=== PATIENT | male | born 1950 | race Caucasian/White ===

== ENCOUNTER → 2016-11-17 | Outpatient (CLI) | payer MEDICARE ==
[~2016-11-17] MED LIST: ALLP300T PO; AMLO10TA82 PO; ASP325T PO; CODE-54 PO; LSNP10T PO; METO25TA2 PO; PRV20T PO; REGADENOSON 0.4 MG/5 ML SYR (LEXISCAN) IV ONE
[2016-11-17 09:04] VITALS: BP 151/71
[2016-11-17 09:15] VITALS: BP 135/76
[2016-11-17 09:17] VITALS: BP 158/76
== END ==
LOC: CARD 06:56
PROVIDERS: ATTEND Internal Medicine Interventional Cardiology
DX: Z01.810 Encounter for preprocedural cardiovascular examination (principal); R07.89 Other chest pain; E11.9 Type 2 diabetes mellitus without complications; I10 Essential (primary) hypertension; E78.5 Hyperlipidemia, unspecified
CPT/HCPCS: 78452; 93017; 93306

== ENCOUNTER → 2018-05-30 | Outpatient (CLI) | payer MEDICARE ==
[~2018-05-30] MED LIST changes: -REGADENOSON 0.4 MG/5 ML SYR (LEXISCAN) IV ONE
--- NOTE | 2018-05-30 12:59 | Diagnostic Imaging Report ---
CLINICAL INDICATION: Both sides of neck has swelling, possible lymph nodes. EXAM: Axial CT scan of the neck soft tissue performed without IV contrast. Sagittal and coronal reformatted images were created. COMPARISON: None. FINDINGS: There is soft tissue thickening involving the inferior right lateral oropharyngeal region which starts below the level of the right palatal arch to the level of the top of the epiglottis. There is no measurable mass seen. Remainder of the nasopharynx, oropharynx, hypopharynx, and laryngeal soft tissue structures are unremarkable. There is no evidence of lymphadenopathy. The bilateral salivary glands are unremarkable. There is a 7 mm cyst involving the right thyroid gland. Otherwise, the thyroid gland is unremarkable. There is no neck soft tissue fluid collection, fat stranding, soft tissue mass. The visualized portion of the oral cavity, sublingual space, submandibular region is unremarkable. Visualized upper lung harrison are clear. There are cervical spine degenerative disease including suggestion of diffuse disc bulges at the C3 through C7 levels. There is at least ziag-gp-kaeyrfxp central canal narrowing at the C3 through C7 levels. There is severe bilateral neural foramen narrowing at the C5-C6 and left neural foramen narrowing at C6-C7 level due to uncinate spurs and facet arthropathy. There is moderate-to- severe left C3-C4 and C4-C5 neural foramen narrowing due to uncinate spurs. IMPRESSION: 1: There is nonspecific soft tissue prominence involving the right lateral oropharynx. A mass in this region should be excluded. Direct visualization is suggested. 2: Otherwise, there is no evidence of neck soft tissue mass or lymphadenopathy. 3: Cahbcgsb-eb-rqnlys cervical spine degenerative disease. Dictated by: Dictated on workstation # [id number]
== END ==
LOC: RAD 12:07
PROVIDERS: ATTEND Nurse Practitioner Family
DX: M47.812 Spondylosis without myelopathy or radiculopathy, cervical region (principal); R22.1 Localized swelling, mass and lump, neck
CPT/HCPCS: 70490

== ENCOUNTER → 2019-01-29 | Outpatient (CLI) | payer MEDICARE ==
--- NOTE | 2019-01-29 10:48 | Diagnostic Imaging Report ---
PROCEDURE: US right lower extremity venous. TECHNIQUE: Multiple real-time grayscale images were obtained over the right lower extremity in various projections. Additional spectral analysis and color Doppler duplex images were also obtained. INDICATION: Lower extremity swelling FINDINGS: The right lower extremity femoropopliteal deep venous system showed normal color color flow, normal compressibility and normal waveforms. There is no DVT and no visualized superficial clot. IMPRESSION: Normal negative unilateral right lower extremity venous Doppler and ultrasound exam. Dictated by: Dictated on workstation # [id number]
== END ==
LOC: RAD 08:58
PROVIDERS: ATTEND Nurse Practitioner Family
DX: R22.41 Localized swelling, mass and lump, right lower limb (principal)

== ENCOUNTER → 2019-02-12 | Outpatient (CLI) | payer MEDICARE ==
--- NOTE | 2019-02-12 14:07 | Diagnostic Imaging Report ---
EXAMINATION: Magnetic resonance imaging of the right knee without intravenous contrast DATE: February 12, 2019. COMPARISON: None. INDICATION: 68-year-old male, right knee pain, injury. TECHNIQUE: Multiplanar, multisequence non contrast enhanced MR imaging was accomplished. FINDINGS: MENISCI: There is an extensive complex tear involving the body, posterior horn, and posterior root attachment of the medial meniscus. There is medial meniscal extrusion measuring 5 mm. There is a longitudinal horizontal type tear involving the anterior horn, body, posterior horn of the lateral meniscus. LIGAMENTS AND TENDONS: The anterior cruciate ligament and posterior cruciate ligament are intact. The medial collateral ligament is intact. The iliotibial band, mid third lateral capsular ligament, fibular collateral ligament, biceps femoris tendon and conjoined tendon are intact. The quadriceps tendon and patella ligament are intact. JOINT: There is near full-thickness cartilage loss of the upper aspect of the median patellar ridge and additional patellar cartilage irregularity. There is no identified defect in the cartilage of the femoral trochlea. The medial and lateral compartment cartilage is grossly intact. There is a apmmm-wf-bmxwvnrb knee joint effusion without identified intra-articular body or prominent synovitis. BONE: There is a nondisplaced subchondral fracture involving the medial tibial plateau with adjacent prominent marrow edema. There is degenerative related marrow edema in the patella. The additional bone marrow signal is unremarkable. BURSAE AND SOFT TISSUES: There is no Cotter's cyst. There is nonspecific prepatellar subcutaneous edema. IMPRESSION: 1. Extensive complex tear involving the body, posterior horn, and posterior root attachment of the medial meniscus with 5 mm medial meniscal extrusion. 2. Longitudinal horizontal type tear involving the anterior horn, body, and posterior horn of the lateral meniscus. 3. Intact anterior and posterior cruciate ligaments. Additional ligaments and tendons are intact. 4. Moderate patellofemoral compartment osteoarthritis. Small to moderate knee joint effusion without identified intra-articular body or prominent synovitis. 5. Nondisplaced subchondral fracture of the medial tibial plateau which may be stress or insufficiency related. Called/faxed to Nayana Flores at 2 p.m. by garth Dictated by: Dictated on workstation # [id number]
== END ==
LOC: RAD 11:42
PROVIDERS: ATTEND Nurse Practitioner Family
DX: S83.241A Other tear of medial meniscus, current injury, right knee, initial encounter (principal); S83.281A Other tear of lateral meniscus, current injury, right knee, initial encounter; M17.11 Unilateral primary osteoarthritis, right knee; M25.461 Effusion, right knee; S82.144A Nondisplaced bicondylar fracture of right tibia, initial encounter for closed fracture
CPT/HCPCS: 73721

== ENCOUNTER → 2019-07-30 | Outpatient (CLI) | payer MEDICARE ==
--- NOTE | 2019-07-30 10:41 | Diagnostic Imaging Report ---
PROCEDURE: US Bilateral lower extremity arterial. TECHNIQUE: Multiple Real-time grayscale images are obtained through both lower extremity arterial systems with color Doppler imaging and color Doppler spectral analysis. INDICATION: Claudication symptoms, cold feet. History of hypertension and diabetes. CORRELATION STUDY: None. FINDINGS: Color and grayscale images demonstrate scattered atherosclerotic plaque to be present. There are triphasic slightly dampened biphasic waveforms noted within the major arteries of both legs. The arteries are patent to the level of the ankles via the dorsalis pedis and posterior tibial arteries. There is no appreciable velocity change to suggest a high degree area of stenosis. IMPRESSION: Atherosclerotic change about the major arteries of both legs; however, the vessels are patent and there is no finding suggestive of significant flow limitation or stenosis at this time. Dictated by: Dictated on workstation # [id number]
== END ==
LOC: RAD 08:21
PROVIDERS: ATTEND Nurse Practitioner Family
DX: I73.9 Peripheral vascular disease, unspecified (principal); I70.213 Atherosclerosis of native arteries of extremities with intermittent claudication, bilateral legs
CPT/HCPCS: 93925

== ENCOUNTER → 2019-11-29 | Outpatient (CLI) | payer MEDICARE ==
[2019-11-29 13:05] LABS: CREATININE SERUM 1.64 MG/DL (0.60-1.30)
--- NOTE | 2019-11-29 15:14 | Diagnostic Imaging Report ---
INDICATION: Abdominal pain. COMPARISON: 06/15/2006. TECHNIQUE: Multiple contiguous axial images were obtained through the abdomen and pelvis without the use of intravenous contrast. Auto Exposure Controls were utilized during the CT exam to meet ALARA standards for radiation dose reduction. The visualized portions of the lung bases were unremarkable. There is no pleural fluid collection. There is no free intraperitoneal air. The liver shows a vague area of hypoattenuation in the inferior portion of the right lobe, suggests a study with contrast for further characterization. This area measured about 3.2 cm. The spleen and adrenals and pancreas appear normal. There is cortical scarring of both kidneys with no hydronephrosis. There are small intrarenal calculi in both kidneys. There is no hydronephrosis or ureteral stone. There is no retroperitoneal mass or adenopathy. There is no ascites or abscess. There are scattered colonic diverticuli. There are mildly prominent fluid-filled loops of small bowel proximally, without zone of transition. These findings may represent enteritis or ileus. IMPRESSION: There are some scattered small bowel loops with fluid levels and mild distention, which may represent enteritis or ileus. There is no overt obstruction. There are uncomplicated colonic diverticuli. There is cortical scarring of both kidneys with nonocclusive stones in both kidneys. There is no ureteral stone or hydronephrosis. The patient has had a prior cholecystectomy. There is a vague hypodense area in the right lobe of the liver inferiorly of questionable significance. Would consider a contrast study or follow-up as clinically warranted. Dictated by: Dictated on workstation # [id number]
== END ==
LOC: RAD 12:22
PROVIDERS: ATTEND Nurse Practitioner Family
DX: N20.0 Calculus of kidney (principal); N28.89 Other specified disorders of kidney and ureter; R14.0 Abdominal distension (gaseous); K57.30 Diverticulosis of large intestine without perforation or abscess without bleeding; K76.89 Other specified diseases of liver
CPT/HCPCS: 36415; 74176; 82565; 84520

== ENCOUNTER 2019-12-05 05:43 | Outpatient (CLI) | payer MEDICARE ==
[~2019-12-05] VITALS: Ht 182 cm; Wt 104.5 kg
[2019-12-05] MEDS ORDERED: LISI-552 PO (14:14)
[2019-12-05] MEDS ORDERED: ALLO100T PO (14:14)
[2019-12-05] MEDS ORDERED: INSU100I14 SQ ×2 (14:22)
== END 2019-12-05 14:33 | disposition home or self-care (01) ==
LOC: PREOP 05:43
PROVIDERS: ATTEND Surgery
DX: Z01.818 Encounter for other preprocedural examination (principal)

== ENCOUNTER → 2019-12-10 | Outpatient (CLI) | payer MEDICARE ==
[~2019-12-10] MED LIST changes: +ALLO100T PO; +HYDR-4227 PO; +INSU100I14 SQ; +LISI-552 PO
== END ==
LOC: LABNPT 06:03
PROVIDERS: ATTEND Nurse Practitioner Family
DX: Z01.818 Encounter for other preprocedural examination (principal); Z01.812 Encounter for preprocedural laboratory examination; K43.2 Incisional hernia without obstruction or gangrene; Z20.828 Contact with and (suspected) exposure to other viral communicable diseases
CPT/HCPCS: 87635

== ENCOUNTER 2019-12-12 08:00 | Day surgery (SDC) | payer MEDICARE ==
[~2019-12-12] VITALS: Ht 182 cm; Wt 104.5 kg
[2019-12-12] VITALS (12 sets, daily range): BP systolic 130–156; BP diastolic 77–89
[~2019-12-12 08:00] MED LIST changes: -HYDR-4227 PO
--- NOTE | 2019-12-12 08:29 | Progress Note-Pre Operative ---
Pre-Operative Progress Note H&P Reviewed The H&P was reviewed, patient examined and no changes noted. Date Seen by Provider: Dec 12, 2019 Time Seen by Provider: 08:25 Date H&P Reviewed: Dec 12, 2019 Time H&P Reviewed: 08:20 Pre-Operative Diagnosis: Symptomatic ventral abdominal incisional hernia PAYTON BOYER APRN Dec 12, 2019 08:28
[2019-12-12] MEDS ORDERED: morphine INJ 10 MG/ML 1ML (SYR OR VIAL) IVP PRN (08:30)
[2019-12-12] MEDS ORDERED: ACETAMINOPHEN 325 MG TABLET PO PRN (08:30)
[2019-12-12] MEDS ORDERED: HYDROcodone/APAP 5 MG/325 MG (LORTAB) TAB PO ONE (08:30)
[2019-12-12] MEDS ORDERED: HYDR-4227 PO (08:30)
[2019-12-12] MEDS ORDERED: ONDANSETRON 4 MG/2 ML (SDV) Z0FRAN IVP PRN (08:30)
--- NOTE | 2019-12-12 08:30 | Discharge Inst-Surgical ---
D/C Lap Instructions-KIDO Reconcile Patient Problems Problems Reviewed?: Yes New, Converted, or Re-Newed RX: RX on Chart Follow Up Appt in 2 weeks Activity as tolerated No driving for 24 hours No driving while on pain medications Incentive Spirometry use every 2 hours while awake Regular Diet Symptoms to Report: Fever over 101 degree F, Nausea/Vomiting Infection Signs and Symptoms to report: Increased redness, Foul odor of wound, Increased drainage Bathing instructions: May shower Operative Area Clean/Dry; Keep incision clean/dry If any problems/questions: Contact your physician or go to Emergency Room PAYTON BOYER APRN Dec 12, 2019 08:30
[2019-12-12] MEDS ORDERED: LACTATED RINGERS 1,000 ML IV PRN (08:42)
[2019-12-12] MEDS ORDERED: ceFAZolin 2 GM IV Premixed 50 ML ONE (08:43)
[2019-12-12] MEDS ORDERED: ceFAZolin 2 GM IV Premixed 50 ML IV ONE (08:45)
[2019-12-12 09:06] LABS: BASOPHILS % (AUTO) 0 % (0-10); EOSINOPHILS # (AUTO) 0.2 10^3/uL (0.0-0.3); EOSINOPHILS % (AUTO) 2 % (0-10); HEMATOCRIT 47 % (40-54); HEMOGLOBIN 15.9 g/dL (13.3-17.7); LYMPHOCYTES % (AUTO) 22 % (12-44); MEAN CORPUSCULAR HEMOGLOBIN 30 pg (25-34); MEAN CORPUSCULAR HGB CONC 34 g/dL (32-36); MEAN CORPUSCULAR VOLUME 88 fL (80-99); MEAN PLATELET VOLUME 10.1 fL (9.0-12.2); MONOCYTES # (AUTO) 0.8 10^3/uL (0.0-1.0); MONOCYTES % (AUTO) 9 % (0-12); NEUTROPHILS % (AUTO) 66 % (42-75); PLATELET COUNT 212 10^3/uL (130-400); WHITE BLOOD COUNT 9.1 10^3/uL (4.3-11.0)
[2019-12-12] MEDS ORDERED: BUP/EPI 0.25% 1:200,000 (MARCAINE) 30 ML VIAL ONE (09:44)
[2019-12-12] MEDS ORDERED: fentaNYL INJECTION 100 MCG/2 ML AMP ONE (09:59)
[2019-12-12] MEDS ORDERED: ONDANSETRON 4 MG/2 ML (SDV) Z0FRAN ONE (10:37)
[2019-12-12] MEDS ORDERED: SEVOFLURANE (ULTANE) 15 ML INHAL SOLN ONE (10:37)
[2019-12-12] MEDS ORDERED: NEOSTIGMINE 3 MG/3 ML VIAL ONE (10:37)
[2019-12-12] MEDS ORDERED: ROCURONIUM 10 MG/ML 5 ML SYRINGE IV ONE (10:37)
[2019-12-12] MEDS ORDERED: proPOfol 200 MG/20 ML (DIPRIVAN) VIAL IV ONE (10:37)
[2019-12-12] MEDS ORDERED: ESMOLOL 100 MG/10 ML (BREVIBLOC) VIAL ONE (10:37)
[2019-12-12] MEDS ORDERED: GLYCOPYRROLATE 0.2 MG/ML (ROBINUL) 2 ML VIAL ONE (10:37)
[2019-12-12] MEDS ORDERED: LIDOCAINE PF 2% 5 ML (XYLOCAINE) VIAL ONE (10:37)
--- NOTE | 2019-12-12 11:00 | Progress Note-Post Operative ---
Post-Operative Progess Note Surgeon (s)/Grinder Setup Operator (s) Surgeon KINDRA MACIAS MD Grinder Setup Operator: alayna watkins RENTAL COORDINATOR Pre-Operative Diagnosis Symptomatic ventral abdominal incisional hernia Post-Operative Diagnosis same, reducible Procedure & Operative Findings Date of Procedure 12/12/19 Procedure Performed/Findings ventral abdominal incisional hernia repair with mesh. Anesthesia Type get Estimated Blood Loss Estimated blood loss (mL): minimal Specimens/Packing Specimens Removed none KINDRA MACIAS MD Dec 12, 2019 11:00
[2019-12-12] MEDS ORDERED: HYDROmorphone 2 MG/ML VIAL (DILAUDID) IV ONE (11:30)
[2019-12-12] MEDS ORDERED: morphine INJ 10 MG/ML 1ML (SYR OR VIAL) IVP ONE (11:30)
[2019-12-12] MEDS: ONDANSETRON 4 MG/2 ML (SDV) Z0FRAN IVP PRN ×2 (11:43→12:22)
[2019-12-12] MEDS ORDERED: HYDROcodone/APAP 5 MG/325 MG (LORTAB) TAB ONE (12:19)
--- NOTE | 2019-12-12 13:42 | Anesthesia-General Post-Op ---
General Patient Condition Mental Status/LOC: Same as Preop Cardiovascular: Satisfactory Nausea/Vomiting: Absent Respiratory: Satisfactory Pain: Controlled Complications: Absent Post Op Complications Complications None Follow Up Care/Instructions Patient Instructions None needed. Anesthesia/Patient Condition Patient Condition Patient was seen after the procedure and he was doing well, no complaints, stable vital signs, no apparent adverse anesthesia problems. LINDA DIEZ DO Dec 12, 2019 13:42
--- NOTE | 2019-12-12 16:29 | OPERATIVE REPORT ---
DATE OF SERVICE: 12/12/2019 ATTENDING PRIMARY CARE PHYSICIAN: Prem Flores DO PREOPERATIVE DIAGNOSIS: Reducible symptomatic ventral abdominal incisional hernia. POSTOPERATIVE DIAGNOSIS: Reducible symptomatic ventral abdominal incisional hernia. PROCEDURE: Open reducible ventral abdominal incisional hernia repair with mesh. SURGEON: Kindra Macias MD. CUPOLA TAPPER HELPER: Uche Priest APRN. ANESTHESIA: General endotracheal. ESTIMATED BLOOD LOSS: Minimal. FINDINGS: Omentum within the hernia sac. DISPOSITION: The patient tolerated the procedure well. INDICATIONS: The patient is a 69-year-old male, who reports that he underwent a laparoscopic cholecystectomy approximately 4 years ago; however, had issues with what sounds to be choledocholithiasis, requiring multiple ERCPs and stone excision. He then underwent a surgical procedure, which sounds to be an open Lindsay-en-Y hepaticojejunostomy through a Melina incision. To get better exposure, he also underwent a rib resection as well as excision of the xiphoid process. This surgery was done approximately 3 years ago. Over time, he developed an outpouching along the superior and medial aspect of the Melina incision around where the xiphoid process would be. Upon examination, he was found to have a reducible symptomatic incisional hernia within this region. DESCRIPTION OF PROCEDURE: The abdomen was prepped and draped in standard surgical fashion. A skin incision along the previous medial aspect of the Melina incision was made using a 15 blade. The subcutaneous tissue was then dissected using electrocautery. The hernia sac was identified and completely dissected out using Metzenbaum scissors. We then proceeded with a fascial release superiorly inferiorly as well as laterally using electrocautery with visualization of good hemostasis. The hernia sac was then opened using Metzenbaum scissors. There was only omentum within the hernia sac. He was then proceed with an underlay mesh hernia repair. An 8 cm coated polypropylene mesh was placed into the peritoneal cavity and sutured transfascially in a concentric manner using 0 Prolene sutures. There was adequate fascia to close primarily over the mesh, which was done using 0 Prolene running suture. Good hemostasis was observed. The subcutaneous tissue was then reapproximated using 3-0 Vicryl interrupted suture. Skin was closed using 4-0 Monocryl running subcuticular suture. Wound was then cleaned and covered with Dermabond. The region was then filled with tonsil sponges followed by Op-Site followed by a large abdominal binder. The patient tolerated the procedure well. We will start IV normal pain medication as well as a clear liquid diet. Once he is tolerating clears, has good pain control with oral pain medications, ambulating well, we will discharge him home. He will be instructed to do no heavy lifting for the next six weeks. Job ID: [id number] DocumentID: [id number] Dictated Date: 12/12/2019 11:12:56 Railcar Brake Operator Date: 12/12/2019 16:28:24 Dictated By: KINDRA MACIAS MD
== END 2019-12-12 13:20 | disposition home or self-care (01) ==
LOC: SDC 08:00
PROVIDERS: ATTEND Surgery
DX: K43.2 Incisional hernia without obstruction or gangrene (principal); I10 Essential (primary) hypertension; I25.10 Atherosclerotic heart disease of native coronary artery without angina pectoris; E11.9 Type 2 diabetes mellitus without complications; M10.9 Gout, unspecified; I25.2 Old myocardial infarction; Z79.899 Other long term (current) drug therapy; Z87.891 Personal history of nicotine dependence; Z80.3 Family history of malignant neoplasm of breast
CPT/HCPCS: 49560; 82962; 85025; 87081; C1781; 36415

== ENCOUNTER → 2020-04-27 | Outpatient (CLI) | payer MEDICARE ==
[~2020-04-27] VITALS: Ht 180 cm; Wt 102.0 kg
[~2020-04-27] MED LIST changes: +HYDR-4227 PO; -LISI-552 PO; +LISI20TA26 PO; +REGADENOSON 0.4 MG/5 ML SYR (LEXISCAN) IV ONE
[2020-04-27] MEDS: CATHETER FLUSH 10 ML SYR IV PRN ×2 (07:03→08:09)
[2020-04-27 08:05] VITALS: BP 207/98
--- NOTE | 2020-04-27 10:48 | Cardiology Stress Test Report ---
Stress Test Report Date of Procedure/Referring: Date of Procedure: Apr 27, 2020 PCP Nayana Flores,Dnp Admitting Physician Prem Flores DO Indications: Chest pain Baseline Vital Signs Vital Signs Date Time Temp Pulse Resp B/P (MAP) Pulse Ox O2 Delivery O2 Flow Rate FiO2 04/27/20 08:05 87 16 207/98 (134) 98 Room Air Summary: Patient receive a resting and stress dose of Myoview, images were acquired and reviewed in the short axis view, horizontal long axis view and vertical long axis view. TID: 1.05 SSS: 7 SDS: 2 EF: 42 1. Diaphragmatic attenuation with fixed defect involving the mid to apical inferior wall with no significant reversibility 2. Normal left ventricular size with hypokinesia at the inferior wall, EF 42 percent SJ FITCH MD Apr 27, 2020 10:48
== END ==
LOC: CARD 07:15
PROVIDERS: ATTEND Nurse Practitioner Family
DX: I45.5 Other specified heart block (principal)
CPT/HCPCS: 78452; 93017; A9502

== ENCOUNTER → 2021-04-02 | Outpatient (CLI) | payer MEDICARE ==
[~2021-04-02] VITALS: Ht 182 cm; Wt 100.0 kg
[~2021-04-02] MED LIST changes: +CATHETER FLUSH 10 ML SYR IV PRN
[2021-04-02 08:03] VITALS: BP 138/87
--- NOTE | 2021-04-02 12:58 | Cardiology Stress Test Report ---
Stress Test Report Date of Procedure/Referring: Date of Procedure: Apr 02, 2021 PCP Nayana Flores,Dnp Admitting Physician Jonathan Flores DO Indications: CP Baseline Vital Signs Vital Signs Date Time Temp Pulse Resp B/P (MAP) Pulse Ox O2 Delivery O2 Flow Rate FiO2 04/02/21 08:03 81 138/87 (104) Summary: Patient receive a resting and stress dose of Myoview, images were acquired and reviewed in the short axis view, horizontal long axis view and vertical long axis view. TID: 1 SSS: 10 SDS: 5 EF: 46 1. Diaphragmatic attenuation with reversible ischemia involving the inferior wall and inferolateral wall 2. Normal left ventricular size with hypokinesia of the inferior wall and inferolateral wall, EF 46% Copy Copies To 1: JONATHAN FLORES BASHAR J MD Apr 02, 2021 12:58
== END ==
LOC: CARD 07:00
PROVIDERS: ATTEND Nurse Practitioner Family
DX: R07.89 Other chest pain (principal); R94.31 Abnormal electrocardiogram [ECG] [EKG]
CPT/HCPCS: 78452; 93017; A9502

== ENCOUNTER 2021-06-17 14:22 | Emergency (ER) | payer MEDICARE ==
[~2021-06-17] VITALS: Ht 183 cm; Wt 95.0 kg
[~2021-06-17 14:22] MED LIST changes: -CATHETER FLUSH 10 ML SYR IV PRN; -REGADENOSON 0.4 MG/5 ML SYR (LEXISCAN) IV ONE
[2021-06-17 15:11] LABS: ALBUMIN 3.6 GM/DL (3.2-4.5); POTASSIUM 5.4 MMOL/L (3.6-5.0)
[2021-06-17 15:12] LABS: CALCIUM 9.1 MG/DL (8.5-10.1)
[2021-06-17 15:14] LABS: BASOPHILS # (AUTO) 0.1 10^3/uL (0.0-0.1); BASOPHILS % (AUTO) 1 % (0-10); EOSINOPHILS # (AUTO) 0.6 10^3/uL (0.0-0.3); EOSINOPHILS % (AUTO) 7 % (0-10); HEMATOCRIT 29 % (40-54); HEMOGLOBIN 9.5 g/dL (13.3-17.7); LYMPHOCYTES # (AUTO) 1.2 X 10^3 (1.0-4.0); LYMPHOCYTES % (AUTO) 13 % (12-44); MEAN CORPUSCULAR HEMOGLOBIN 30 pg (25-34); MEAN CORPUSCULAR HGB CONC 33 g/dL (32-36); MEAN CORPUSCULAR VOLUME 93 fL (80-99); MEAN PLATELET VOLUME 9.3 fL (9.0-12.2); MONOCYTES # (AUTO) 0.6 X 10^3 (0.0-1.0); MONOCYTES % (AUTO) 7 % (0-12); NEUTROPHILS # (AUTO) 6.6 X 10^3 (1.8-7.8); NEUTROPHILS % (AUTO) 73 % (42-75); PLATELET COUNT 448 10^3/uL (130-400); TOTAL PROTEIN 6.4 GM/DL (6.4-8.2)
[2021-06-17 15:15] LABS: BILIRUBIN,TOTAL 0.8 MG/DL (0.1-1.0)
[2021-06-17 15:17] LABS: CREATININE SERUM 2.73 MG/DL (0.60-1.30)
--- NOTE | 2021-06-17 15:17 | ED Cardiac General ---
History of Present Illness General Chief Complaint: Cardiac/General Problems Stated Complaint: LOW BLOOD PRESSURE Nursing Triage Note: pt states he had quad cabg 8 days ago, cc today of hypotension with home health of 110/52. states feeling fatique but has not eaten much today. also passing kidney stones for off and on for 3 years just passed 3 the day of cabg. lt leg drainage from where they took vesseles for cabg, temp of 99.5 at triage Source: patient Exam Limitations: no limitations (CARL SIBLEY MED STUDENT) History of Present Illness Date Seen by Provider: Jun 17, 2021 Time Seen by Provider: 15:03 Initial Comments Mr. River is a 70yo male with PMH triple bypass 8 days ago and DM who presents today for hypotension. His some health nurse saw him today and was concerned with his blood pressure of 110/52. He states that he feels okay, is not having any pain. He does have some oozing of serous looking fluid from his leg. He complains of dizziness of a couple years that is worse with standing. He denies any other symptoms. He feels that he isn't very concerned as is just here because he was told to be. Standing blood pressure was checked and was found to be ~80/50. He has been drinking about 2L of water per day. (CARL SIBLEY MED STUDENT) Allergies and Home Medications Allergies Coded Allergies: Flyklzu-EMA-WwP Reductase Inhibitor (Verified Allergy, Mild, 04/02/21) Patient Home Medication List Allopurinol (Allopurinol) 100 Mg Tablet, 100 MG PO DAILY, (Reported) Entered as Reported by: BRII CACERES on 12/05/19 1414 Hydrocodone/Acetaminophen ([place] 7.5-325 Tablet) 1 Each Tablet, 1-2 TAB PO Q4H Prescribed by: PAYTON BOYER on 12/12/19 0830 Insulin Aspart (Novolog Flexpen) 300 Units/3 Ml Solution, 0-10 UNITS SQ AC, (Reported) Entered as Reported by: BRII CACERES on 12/05/19 1422 Insulin Aspart (Novolog Flexpen) 300 Units/3 Ml Solution, 0-10 UNITS SQ HS, (Reported) Entered as Reported by: BRII CACERES on 12/05/19 142 Lisinopril (Lisinopril) 20 Mg Tablet, 20 MG PO DAILY, (Reported) Entered as Reported by: BRII CACERES on 12/05/19 1414 Review of Systems Review of Systems Constitutional: No chills, No fever EENTM: No Blurred Vision, No Double Vision Respiratory: Denies Cough, Denies Shortness of Air Cardiovascular: Denies Chest Pain, Denies Edema, Denies Syncope Gastrointestinal: Denies Abdominal Pain, Denies Constipated, Denies Diarrhea, Denies Nausea, Denies Vomiting Genitourinary: Denies Hematuria; Other (no dysuria) Musculoskeletal: No joint pain, No joint swelling Skin: other (oozing from lesion on L leg. Serous looking, no redness or swelling around lesion) Psychiatric/Neurological: Headache (Headache/dizziness/Unsteadiness feeling when standing. ), Weakness (When standing) (CARL SIBLEY STUDENT) Past Emgrshk-Qlyxml-Skcpjx Hx Patient Social History Tobacco Use?: No Tobacco type used: Cigarettes Smoking Status: Former Smoker Substance use?: No Alcohol Use?: No (CARL SIBLEY) Immunizations Up To Date Influenza Vaccine Up-to-Date: Yes; Up-to-Date (CARL SIBLEY) Seasonal Allergies Seasonal Allergies: Yes (CARL SIBLEY) Past Medical History Surgery/Hospitalization HX: quad cabg 06/2021, several back surgeries, lt shoulder, bi lat knee Surgeries: Yes (KIDNEY STONEBILAT KNEE, BACK X3, SHOULDER YESSICA,CALF MUSCLE, SEVERAL FOR GB ) Gallbladder Respiratory: No Currently Using CPAP: No Currently Using BIPAP: No Cardiac: Yes Heart Attack, Hypertension Neurological: Yes (CHILDHOOD) Seizure Disorder Sexually Transmitted Disease: No HIV/AIDS: No Genitourinary: Yes (LOW KIDNEY FUNCTION) Kidney Stones Gastrointestinal: Yes (GROWTH ON LIVER) Chronic Constipation, Chronic Diarrhea Musculoskeletal: Yes (BACK SX) Chronic Back Pain Endocrine: Yes Diabetes, Insulin dep HEENT: Yes (GLASSES) Loss of Vision: Denies Hearing Impairment: Denies Cancer: Yes Skin Did You Recieve Any Treatments: Yes Psychosocial: No Integumentary: No Blood Disorders: No Adverse Reaction/Blood Tranf: No (N/A) (CARL SIBLEY) Physical Exam Vital Signs Vital Signs - First Documented 06/17/21 14:32 Temp 37.5 Pulse 69 Resp 18 B/P (MAP) 140/70 (93) Pulse Ox 98 O2 Delivery Room Air (SARAH LARSON MD) Vital Signs Capillary Refill : Less Than 3 Seconds (CARL SIBLEY MED STUDENT) Height, Weight, BMI Height: '" Weight: 240lbs. oz. 108.979511su; 28.00 BMI Method: General Appearance: No Apparent Distress, WD/WN, Chronically ill HEENT: PERRL/EOMI, Pharynx Normal, Moist Mucous Membranes Respiratory: Chest Non Tender, Lungs Clear, Normal Breath Sounds Cardiovascular: Regular Rate, Rhythm, No Edema, No Murmur, Normal Peripheral Pulses, Other (sternotomy scar) Gastrointestinal: Normal Bowel Sounds, Non Tender, Soft Extremity: Non Tender, No Calf Tenderness, Pedal Edema (Bilateral, Worse on R), Other (serous drainage from an open lesion on L leg, there is no redness or swelling of the lesion. No swelling of the leg. ) Neurologic/Psychiatric: Alert, Oriented x3, No Motor/Sensory Deficits Skin: Normal Color, Warm/Dry (CARL SIBLEY MED STUDENT) Progress/Results/Core Measures Results/Orders Lab Results Laboratory Tests Test 06/17/21 14:45 Range/Units White Blood Count 9.0 4.3-11.0 10^3/uL Red Blood Count 3.13 L 4.30-5.52 10^6/uL Hemoglobin 9.5 L 13.3-17.7 g/dL Hematocrit 29 L 40-54 % Mean Corpuscular Volume 93 80-99 fL Mean Corpuscular Hemoglobin 30 25-34 pg Mean Corpuscular Hemoglobin Concent 33 32-36 g/dL Red Cell Distribution Width 14.6 H 10.0-14.5 % Platelet Count 448 H 130-400 10^3/uL Mean Platelet Volume 9.3 9.0-12.2 fL Immature Granulocyte % (Auto) 0 % Neutrophils (%) (Auto) 73 42-75 % Lymphocytes (%) (Auto) 13 12-44 % Monocytes (%) (Auto) 7 0-12 % Eosinophils (%) (Auto) 7 0-10 % Basophils (%) (Auto) 1 0-10 % Neutrophils # (Auto) 6.6 1.8-7.8 X 10^3 Lymphocytes # (Auto) 1.2 1.0-4.0 X 10^3 Monocytes # (Auto) 0.6 0.0-1.0 X 10^3 Eosinophils # (Auto) 0.6 H 0.0-0.3 10^3/uL Basophils # (Auto) 0.1 0.0-0.1 10^3/uL Immature Granulocyte # (Auto) 0.0 0.0-0.1 10^3/uL Sodium Level 135 135-145 MMOL/L Potassium Level 5.4 H 3.6-5.0 MMOL/L Chloride Level 100 98-107 MMOL/L Carbon Dioxide Level 23 21-32 MMOL/L Anion Gap 12 5-14 MMOL/L Blood Urea Nitrogen 30 H 7-18 MG/DL Creatinine 2.73 H 0.60-1.30 MG/DL Estimat Glomerular Filtration Rate 24 BUN/Creatinine Ratio 11 Glucose Level 138 H 70-105 MG/DL Calcium Level 9.1 8.5-10.1 MG/DL Corrected Calcium 9.4 8.5-10.1 MG/DL Magnesium Level 2.4 1.6-2.4 MG/DL Total Bilirubin 0.8 0.1-1.0 MG/DL Aspartate Amino Transf (AST/SGOT) 40 H 5-34 U/L Alanine Aminotransferase (ALT/SGPT) 63 H 0-55 U/L Alkaline Phosphatase 153 H 40-136 U/L C-Reactive Protein High Sensitivity 4.55 H 0.00-0.50 MG/DL Total Protein 6.4 6.4-8.2 GM/DL Albumin 3.6 3.2-4.5 GM/DL (SARAH LARSON MD) My Orders Orders - SARAH LARSON MD Cbc With Automated Diff (06/17/21 15:03) Comprehensive Metabolic Panel (06/17/21 15:03) Hs C Reactive Protein (06/17/21 15:03) Magnesium (06/17/21 15:03) Ed Iv/Invasive Line Start (06/17/21 15:03) Ekg Tracing (06/17/21 15:03) Monitor-Rhythm Ecg Trace Only (06/17/21 15:03) Ns Iv 1000 Ml (Sodium Chloride 0.9%) (06/17/21 15:45) (SARAH LARSON MD) Vital Signs/I&O 06/17/21 14:32 Temp 37.5 Pulse 69 Resp 18 B/P (MAP) 140/70 (93) Pulse Ox 98 O2 Delivery Room Air (SARAH LARSON MD) Blood Pressure Mean: 93 Departure Impression Primary Impression: Orthostatic hypotension Additional Impressions: Hypovolemia Hyperkalemia Acute kidney injury Disposition: HOME, SELF-CARE Condition: Improved Departure-Patient Inst. Decision time for Depature: 17:27 (SARAH LARSON MD) Referrals: JONATHAN OKEEFE DO (PCP) Primary Care Physician DAMION OKEEFE DNP (Family) Primary Care Physician Patient Instructions: Orthostatic Hypotension Add. Discharge Instructions: Your low blood pressure and dizziness today appears to be due to dehydration and low fluid volume (hypovolemia). This is likely due to a combination of insufficient fluid intake and your diuretics (Lasix). Skip your next dose of Lasix (furosemide) and potassium. Then only take Lasix and potassium every other day until you can discuss further with your primary care provider or cognos tm1 developer. Drink plenty of clear liquids to stay well-hydrated. Follow-up with your primary care provider as soon as possible, preferably by Monday to have your vital signs checked again and arrange for follow-up blood work. Return to the ER if you have worsening symptoms. All discharge instructions reviewed with patient and/or family. Voiced understanding. Copy Copies To 1: JONATHAN OKEEFE DEREK MED STUDENT Jun 17, 2021 15:17 SARAH LARSON MD Jun 17, 2021 17:30
[2021-06-17 15:20] LABS: MAGNESIUM 2.4 MG/DL (1.6-2.4)
[2021-06-17] MEDS ORDERED: LACTATED RINGERS 1,000 ML IV ONE (15:30)
[2021-06-17] MEDS ORDERED: NS IV 1000 ML 1,000 ML IV SCH ×2 (15:45)
[2021-06-17 17:27] VITALS: BP_SYST 113; BP_SYST 124; BP_DIAS 52; BP_DIAS 66; BP_DIAS 88
[2021-06-17 17:40] VITALS: BP 124/52
== END 2021-06-17 17:40 | disposition home or self-care (01) ==
LOC: EDUNIT# 14:22 → ER 14:24
DX: I95.1 Orthostatic hypotension (principal); E86.1 Hypovolemia; E87.5 Hyperkalemia; N17.9 Acute kidney failure, unspecified; E11.9 Type 2 diabetes mellitus without complications; Z87.891 Personal history of nicotine dependence; Z79.4 Long term (current) use of insulin
CPT/HCPCS: 36415; 80053; 83735; 85025; 86141; 93041

== ENCOUNTER → 2021-07-02 | Outpatient (CLI) | payer MEDICARE ==
--- NOTE | 2021-07-02 08:42 | Diagnostic Imaging Report ---
Indication: Postop cardiac surgery PA and lateral chest obtained at 0821 a.m. compared to 12/04/2012. Patient's had previous sternotomy. The heart is normal in size. There is some linear scarring or atelectasis in the left base. There is no consolidation or pneumothorax or pleural fluid. IMPRESSION: Poststernotomy changes. There is some scarring in the left lung base. No consolidation or pleural fluid. Dictated by: Dictated on workstation # [id number]
== END ==
LOC: RAD 08:07
PROVIDERS: ATTEND Thoracic Surgery (Cardiothoracic Vascular Surgery)
DX: J98.4 Other disorders of lung (principal); Z95.1 Presence of aortocoronary bypass graft
CPT/HCPCS: 71046

== ENCOUNTER 2021-08-15 18:11 | Emergency (ER) | payer MEDICARE ==
[~2021-08-15] VITALS: Ht 182.8 cm; Wt 95.4 kg
[2021-08-15] MEDS ORDERED: NS IV 1000 ML 1,000 ML IV SCH (18:30)
[2021-08-15 18:33] VITALS: BP 94/66
[2021-08-15 18:40] LABS: HEMATOCRIT 39 % (40-54); HEMOGLOBIN 12.7 g/dL (13.3-17.7); MEAN CORPUSCULAR HEMOGLOBIN 28 pg (25-34); MEAN CORPUSCULAR HGB CONC 32 g/dL (32-36); MEAN CORPUSCULAR VOLUME 87 fL (80-99); WHITE BLOOD COUNT 7.7 10^3/uL (4.3-11.0)
--- NOTE | 2021-08-15 18:40 | ED General ---
General Chief Complaint: Dizziness/Syncope Stated Complaint: LOW BP 74/42 Source of Information: Patient (EXTREMELY VAGUE AND LIMITED HISTORIAN), Old Records History of Present Illness Date Seen by Provider: Aug 15, 2021 Time Seen by Provider: 18:15 Initial Comments PT ARRIVES VIA POV FROM HOME C/O LOW BLOOD PRESSURE ALL DAY--SINCE AROUND 1230 TODAY STATES BP 70'S/40'S ALL DAY + DIZZINESS, NO SYNCOPE NO PALPITATIONS NO CHEST PAIN NO SHORTNESS OF BREATH NO NAUSEA/VOMITING/DIARRHEA OR ABDOMINAL PAIN NO BLACK/BLOODY/TARRY STOOLS NO FEVER PT STATES HE HAS BEEN OUTSIDE AT A [employer]EN [employer] ALL AFTERNOON, AND ALSO WAS OUTSIDE WATCHING HIS SON "MARI EAT" VERY HOT AND HUMID TODAY--TEMP IN MID 90'S OUTSIDE PT HAD 4 VESSEL CABG 06/02/21 AT PT IS ON 81 MG ASPIRIN, NO OTHER BLOOD THINNERS PT TAKES BP MEDICATION. STATES NO CHANGES IN MEDICATIONS OR DOSES. DENIES TAKING EXTRA MEDICATION STATES HE HAS BEEN EATING AND DRINKING USUAL HAS HAD COVID-19 VACCINE X 1 PCP: DR. OKEEFE CARDIOLOGY AT Allergies and Home Medications Allergies Coded Allergies: Whbyxse-GMI-AqS Reductase Inhibitor (Verified Allergy, Mild, 04/02/21) Patient Home Medication List Home Medication List Reviewed: Yes Allopurinol (Allopurinol) 100 Mg Tablet, 100 MG PO DAILY, (Reported) Entered as Reported by: BRII CACERES on 12/05/19 141 Hydrocodone/Acetaminophen ([place] 7.5-325 Tablet) 1 Each Tablet, 1-2 TAB PO Q4H Prescribed by: PAYTON BOYER on 12/12/19 0830 Insulin Aspart (Novolog Flexpen) 300 Units/3 Ml Solution, 0-10 UNITS SQ AC, (Reported) Entered as Reported by: BRII CACERES on 12/05/19 142 Insulin Aspart (Novolog Flexpen) 300 Units/3 Ml Solution, 0-10 UNITS SQ HS, (Reported) Entered as Reported by: BRII CACERES on 12/05/191421 Lisinopril (Lisinopril) 20 Mg Tablet, 20 MG PO DAILY, (Reported) Entered as Reported by: BRII CACERES on 12/05/19 141 Review of Systems Review of Systems Constitutional: see HPI, diaphoresis, dizziness, other (PT IS PALE AND DIAPHORETIC ON ARRIVAL) EENTM: no symptoms reported Respiratory: no symptoms reported; No cough, No short of breath Cardiovascular: see HPI; No chest pain; other (PER HPI) Gastrointestinal: no symptoms reported; No abdominal pain, No diarrhea, No loss of appetite, No nausea, No vomiting Genitourinary: no symptoms reported Musculoskeletal: no symptoms reported Skin: no symptoms reported Psychiatric/Neurological: No Symptoms Reported; Denies Headache Hematologic/Lymphatic: No Symptoms Reported Immunological/Allergic: no symptoms reported Past Vzaqnit-Vsdecp-Pdnlnx Hx Patient Social History Tobacco Use?: Yes Tobacco type used: Cigarettes Smoking Status: Former Smoker Smokeless Tobacco Frequency: Current Everyday User Use of E-Cig and/or Vaping dev: No Substance use?: No Alcohol Use?: Yes (QUIT SEVERAL YEARS AGO) Seasonal Allergies Seasonal Allergies: Yes Past Medical History Surgery/Hospitalization HX: quad cabg 05/2021, several back surgeries, lt shoulder, bi lat knee Surgeries: Yes (KIDNEY STONEBILAT KNEE, BACK X3, SHOULDER YESSICA,CALF MUSCLE, SEVERAL FOR GB ) Abdominal, Cardiac, CABG, Gallbladder, Joint Replacement, Orthopedic Respiratory: No Currently Using CPAP: No Currently Using BIPAP: No Cardiac: Yes (4 VESSEL CABG 06/02/21 AT ) Atrial Fibrillation, Chronic Edema/Swelling, Coronary Artery Disease, Heart Attack, High Cholesterol, Hypertension Neurological: Yes (CHILDHOOD) Seizure Disorder Sexually Transmitted Disease: No HIV/AIDS: No Genitourinary: Yes (LOW KIDNEY FUNCTION) Kidney Stones, Renal Failure Gastrointestinal: Yes (GROWTH ON LIVER) Abdominal Hernia, Chronic Constipation, Chronic Diarrhea Musculoskeletal: Yes (BACK SX) Arthritis, Chronic Back Pain, Gout Endocrine: Yes Diabetes, Insulin dep HEENT: Yes (GLASSES) Loss of Vision: Denies Hearing Impairment: Denies Cancer: Yes Skin Did You Recieve Any Treatments: Yes Psychosocial: No Integumentary: No Blood Disorders: No Adverse Reaction/Blood Tranf: No (N/A) Family Medical History SOCIAL HISTORY: -SMOKED > 1 PPD, QUIT YEARS AGO, BUT STILL CHEWS TOBACCO -ETOH--HISTORY OF HEAVY USE, CLAIMS NO USE FOR YEARS -DENIES ANY HISTORY OF DRUG USE PAST SURGICAL HISTORY: -CARDIAC CATH'S -4 VESSEL CABG 06/02/21 AT -CHOLECYSTECTOMY -UMBILICAL HERNIA REPAIR 01/[address] PARKS -LEFT ROTATOR CUFF REPAIR -LITHOTRIPSY -BILATERAL KNEE SCOPES -BILATERAL KNEE REPLACEMENTS -BACK SURGERIES/LUMBAR LAMINECTOMY Physical Exam Vital Signs Vital Signs - First Documented 08/15/21 18:33 Temp 36.6 Pulse 93 Resp 20 B/P (MAP) 94/66 (75) Pulse Ox 94 O2 Delivery Room Air Capillary Refill : Height, Weight, BMI Height: '" Weight: 240lbs. oz. 108.057096bg; 28.00 BMI Method: General Appearance: No Apparent Distress, WD/WN, Other (PT IS PALE AND DIAPHORETIC ON ARRIVAL. QUICKLY RESOLVED AFTER ARRIVAL AND PT LAID DOWN ON EXAM TABLE. PT IS FILTHY--COVERED IN DIRT, ALSO HAS A LARGE AMOUNT OF BLACK "DEBRIS" ON CHEST AND ABDOMEN UNDER HIS SHIRT. PT STATES IT IS FROM CHEWING TOBACCO FROM THIS MORNING. ) HEENT: PERRL/EOMI Neck: Normal Inspection Respiratory: Normal Breath Sounds, No Accessory Muscle Use, No Respiratory Distress Cardiovascular: No JVD, No Murmur, Irregularly Irregular Gastrointestinal: Normal Bowel Sounds, No Organomegaly, No Pulsatile Mass, Non Tender, Soft Back: No CVA Tenderness Extremity: Normal Range of Motion, Non Tender, No Calf Tenderness, Other (1-2+ EDEMA ON RIGHT, WITH CHRONIC VENOUS STASIS CHANGES ON LEFT WITH WOODY INDURATION AND TRACE EDEMA. ) Neurologic/Psychiatric: Alert, Oriented x3, No Motor/Sensory Deficits, Normal Mood/Affect, seconds handler II-XII Norm as Tested Skin: Other ( ABOVE) Progress/Results/Core Measures Suspected Sepsis SIRS Temperature: Pulse: Respiratory Rate: Laboratory Tests 08/15/21 18:30: White Blood Count 7.7 Blood Pressure / Mean: Laboratory Tests 08/15/21 18:30: Creatinine 3.30H, INR Comment 1.4, Platelet Count 240, Total Bilirubin 0.4 Results/Orders Lab Results Laboratory Tests Test 08/15/21 18:30 08/15/21 18:36 Range/Units White Blood Count 7.7 4.3-11.0 10^3/uL Red Blood Count 4.54 4.30-5.52 10^6/uL Hemoglobin 12.7 L 13.3-17.7 g/dL Hematocrit 39 L 40-54 % Mean Corpuscular Volume 87 80-99 fL Mean Corpuscular Hemoglobin 28 25-34 pg Mean Corpuscular Hemoglobin Concent 32 32-36 g/dL Red Cell Distribution Width 14.3 10.0-14.5 % Platelet Count 240 130-400 10^3/uL Mean Platelet Volume 9.6 9.0-12.2 fL Immature Granulocyte % (Auto) 0 % Neutrophils (%) (Auto) 57 42-75 % Lymphocytes (%) (Auto) 30 12-44 % Monocytes (%) (Auto) 10 0-12 % Eosinophils (%) (Auto) 3 0-10 % Basophils (%) (Auto) 1 0-10 % Neutrophils # (Auto) 4.3 1.8-7.8 X 10^3 Lymphocytes # (Auto) 2.3 1.0-4.0 X 10^3 Monocytes # (Auto) 0.7 0.0-1.0 X 10^3 Eosinophils # (Auto) 0.2 0.0-0.3 10^3/uL Basophils # (Auto) 0.1 0.0-0.1 10^3/uL Immature Granulocyte # (Auto) 0.0 0.0-0.1 10^3/uL Prothrombin Time 17.7 H 12.2-14.7 SEC INR Comment 1.4 0.8-1.4 Activated Partial Thromboplast Time 35 24-35 SEC D-Dimer 1.20 H 0.00-0.49 UG/ML Sodium Level 139 135-145 MMOL/L Potassium Level 4.5 3.6-5.0 MMOL/L Chloride Level 106 98-107 MMOL/L Carbon Dioxide Level 19 L 21-32 MMOL/L Anion Gap 14 5-14 MMOL/L Blood Urea Nitrogen 33 H 7-18 MG/DL Creatinine 3.30 H 0.60-1.30 MG/DL Estimat Glomerular Filtration Rate 19 BUN/Creatinine Ratio 10 Glucose Level 107 H 70-105 MG/DL Calcium Level 9.5 8.5-10.1 MG/DL Corrected Calcium 9.5 8.5-10.1 MG/DL Magnesium Level 2.1 1.6-2.4 MG/DL Total Bilirubin 0.4 0.1-1.0 MG/DL Aspartate Amino Transf (AST/SGOT) 62 H 5-34 U/L Alanine Aminotransferase (ALT/SGPT) 48 0-55 U/L Alkaline Phosphatase 143 H 40-136 U/L Total Creatine Kinase 91 30-200 U/L Creatine Kinase MB 3.5 <6.6 NG/ML Myoglobin 450.1 H 10.0-92.0 NG/ML Troponin I < 0.028 <0.028 NG/ML B-Type Natriuretic Peptide 34.7 <100.0 PG/ML Total Protein 7.5 6.4-8.2 GM/DL Albumin 4.0 3.2-4.5 GM/DL Influenza Type A (RT-PCR) Not Detected Not Detecte Influenza Type B (RT-PCR) Not Detected Not Detecte SARS-CoV-2 RNA (RT-PCR) Not Detected Not Detecte Glucometer 115 H 70-110 MG/DL My Orders Orders - JANES FAIR DO Ed Iv/Invasive Line Start (08/15/21 18:14) Ekg Tracing (08/15/21 18:14) O2 (08/15/21 18:14) Monitor-Rhythm Ecg Trace Only (08/15/21 18:14) Ekg Tracing (08/15/21 18:15) Accucheck Stat ONCE (08/15/21 18:22) Chest 1 View, Ap/Pa Only (08/15/21 18:22) Bnp [place] (08/15/21 18:22) Cbc With Automated Diff (08/15/21 18:22) Comprehensive Metabolic Panel (08/15/21 18:22) Creatine Kinase (08/15/21 18:22) Creatine Kinase Mb (08/15/21 18:22) Fibrin Degradation Products (08/15/21 18:22) Magnesium (08/15/21 18:22) Protime With Inr (08/15/21 18:22) Partial Thromboplastin Time (08/15/21 18:22) Myoglobin Serum (08/15/21 18:22) Troponin I [place] (08/15/21 18:22) Ed Iv/Invasive Line Start (08/15/21 18:22) Ns Iv 1000 Ml (Sodium Chloride 0.9%) (08/15/21 18:30) Covid 19 Inhouse Test (08/15/21 18:23) Influenza A And B By Pcr (08/15/21 18:23) Isolation Central Supply Req (08/15/21 18:23) Ed Iv/Invasive Line Start (08/15/21 19:32) Lactated Ringers (Lr 1000 Ml Iv Solution (08/15/21 19:45) Vital Signs/I&O 08/15/21 18:33 Temp 36.6 Pulse 93 Resp 20 B/P (MAP) 94/66 (75) Pulse Ox 94 O2 Delivery Room Air Capillary Refill : Progress Note : Progress Note GIVEN IV FLUIDS COVID AND FLU TESTING DONE NO DETERIORATION IN PT'S CONDITION DURING ER STAY BLOOD PRESSURES > 100 SYSTOLIC 1930--ADVISED ADMIT DUE TO PT'S SYMPTOMS AND ELEVATED CREATININE AND D-DIMER, AND HE REFUSES. AMA PAPERS SIGNED. ECG Initial ECG Impression Date: Aug 15, 2021 Initial ECG Impression Time: 18:22 Initial ECG Rate: 88 Initial ECG Impression: Atrial Fibrillation (RBBB, LAFB) Initial ECG Comparisson: Unchanged Diagnostic Imaging Comments CXR--PER RADIOLOGIST REPORT AT 1859 FINDINGS: Sternotomy. Normal heart size and central pulmonary vascularity. No focal pulmonary opacity. No pleural effusion or pneumothorax. No acute osseous finding. No significant change. IMPRESSION: No acute cardiopulmonary finding. Reviewed: Reviewed by Me Departure Impression Primary Impression: Hypovolemia Additional Impressions: Acute kidney injury superimposed on chronic kidney disease CAD WITH CABG Chronic atrial fibrillation IDDM (insulin dependent diabetes mellitus) Left against medical advice Disposition: 07 AGAINST MEDICAL ADVICE Condition: Against Medical Advice Departure-Patient Inst. Referrals: JONATHAN OKEEFE DO (PCP) Primary Care Physician DAMION OKEEFE DNP (Family) Primary Care Physician JANES FAIR DO Aug 15, 2021 18:39
[2021-08-15 18:41] LABS: BASOPHILS # (AUTO) 0.1 10^3/uL (0.0-0.1); BASOPHILS % (AUTO) 1 % (0-10); EOSINOPHILS # (AUTO) 0.2 10^3/uL (0.0-0.3); EOSINOPHILS % (AUTO) 3 % (0-10); LYMPHOCYTES # (AUTO) 2.3 X 10^3 (1.0-4.0); LYMPHOCYTES % (AUTO) 30 % (12-44); MEAN PLATELET VOLUME 9.6 fL (9.0-12.2); MONOCYTES # (AUTO) 0.7 X 10^3 (0.0-1.0); MONOCYTES % (AUTO) 10 % (0-12); NEUTROPHILS # (AUTO) 4.3 X 10^3 (1.8-7.8); NEUTROPHILS % (AUTO) 57 % (42-75); PLATELET COUNT 240 10^3/uL (130-400)
--- NOTE | 2021-08-15 18:50 | Diagnostic Imaging Report ---
EXAM: Chest 1 view, AP/PA only INDICATION: Hypertension. COMPARISON: Chest radiograph 12/04/2012. FINDINGS: Sternotomy. Normal heart size and central pulmonary vascularity. No focal pulmonary opacity. No pleural effusion or pneumothorax. No acute osseous finding. No significant change. IMPRESSION: No acute cardiopulmonary finding. Dictated by: Dictated on workstation # [id number]
[2021-08-15 19:11] LABS: FIBRIN DEGRADATION PRODUCTS 1.2 UG/ML (0.00-0.49); INR 1.4 (0.8-1.4); PROTHROMBIN TIME PATIENT 17.7 SEC (12.2-14.7)
[2021-08-15 19:21] LABS: BUN/CREATININE RATIO 10; CARBON DIOXIDE 19 MMOL/L (21-32); CHLORIDE 106 MMOL/L (98-107); GFR ESTIMATED 19; POTASSIUM 4.5 MMOL/L (3.6-5.0); SODIUM 139 MMOL/L (135-145)
[2021-08-15 19:22] LABS: ALANINE AMINOTRANSFERASE 48 U/L (0-55); ALKALINE PHOSPHATASE 143 U/L (40-136); BILIRUBIN,TOTAL 0.4 MG/DL (0.1-1.0); CALCIUM 9.5 MG/DL (8.5-10.1); CREATINE KINASE 91 U/L (30-200); CREATINE KINASE MB 3.5 NG/ML (<6.6); GLUCOSE 107 MG/DL (70-105); MAGNESIUM 2.1 MG/DL (1.6-2.4); TOTAL PROTEIN 7.5 GM/DL (6.4-8.2)
[2021-08-15] MEDS ORDERED: LACTATED RINGERS 1,000 ML IV ONE (19:45)
== END 2021-08-15 19:40 | disposition left against medical advice (07) ==
LOC: EDUNIT# 18:11 → ER 18:12
DX: N17.9 Acute kidney failure, unspecified (principal); I48.20 Chronic atrial fibrillation, unspecified; I25.10 Atherosclerotic heart disease of native coronary artery without angina pectoris; E86.1 Hypovolemia; R79.1 Abnormal coagulation profile; E11.22 Type 2 diabetes mellitus with diabetic chronic kidney disease; I12.9 Hypertensive chronic kidney disease with stage 1 through stage 4 chronic kidney disease, or unspecified chronic kidney disease; N18.9 Chronic kidney disease, unspecified; F17.220 Nicotine dependence, chewing tobacco, uncomplicated; Z79.4 Long term (current) use of insulin; Z95.1 Presence of aortocoronary bypass graft; Z20.822 Contact with and (suspected) exposure to COVID-19; Z79.82 Long term (current) use of aspirin
CPT/HCPCS: 36415; 71045; 80053; 82550; 82553; 82947; 83735; 83874; 83880; 84484; 85025; 85379; 85610; 85730; 87636; 93005; 93041

== ENCOUNTER 2021-09-29 15:56 | Emergency (ER) | payer MEDICARE ==
[~2021-09-29] VITALS: Ht 180.3 cm; Wt 93.4 kg
[~2021-09-29 15:56] MED LIST changes: -LACTATED RINGERS 2,000 ML IV ONE
--- NOTE | 2021-09-29 16:53 | ED General ---
General Chief Complaint: General Problems/Pain Stated Complaint: HYPOTENSION,DEHYDRATION,SOB,CONFUSED Source of Information: Patient, Family (daughter) Exam Limitations: No Limitations History of Present Illness Date Seen by Provider: Sep 29, 2021 Time Seen by Provider: 16:35 Initial Comments Apparently Mr. River was sent to the emergency room today by the outpatient surgery center where he had been directed by his primary care nurse practitioner to go and get fluids for possible dehydration. After he went to the clinic for routine checkup with his nurse practitioner she felt like he was dehydrated. When he arrived at the outpatient surgery center he appeared confused and was stumbling around. They were concerned for stroke and sent him here. He did have outpatient labs drawn prior to being sent to the emergency department. He has a significant past medical history for coronary artery disease and chronic kidney disease. He is also a diabetic. He is currently awake, alert and oriented. He has no focal deficits. He has no complaints of illness such as headache, fever, shortness of breath or chest pain. No abdominal pain, nausea or vomiting. He states he always has lower extremity edema and that his compression stockings make it worse. He denies diarrhea or black or bloody stools. His daughter is present and states that he is at his normal mental baseline. No recent illnesses. He receives the majority of his care at . He does seem a little absent-minded, he is poorly coordinated with his medical history. He tends to ramble about all of the things he has been to and [address] for. However again no focal neurologic deficits are noted. He is not currently short of breath. Vital signs are stable albeit a little bit on the low side with a systolic blood pressure of 109. When I walked into the room he was talking to his nurse practitioner and she was instructing him not to take amlodipine. Apparently he was mistaken and taking that this morning. He may have overcorrected his blood pressure which caused his confusion. His nurse practitioner stated that she would see him in the clinic tomorrow. All other review of systems reviewed and negative except as stated. Timing/Duration: 1-3 Hours Severity: Moderate Associated Systoms: Denies Symptoms Allergies and Home Medications Allergies Coded Allergies: Avkmutd-AQO-BvX Reductase Inhibitor (Verified Allergy, Mild, 04/02/21) Patient Home Medication List Home Medication List Reviewed: Yes Allopurinol (Allopurinol) 100 Mg Tablet, 100 MG PO DAILY, (Reported) Entered as Reported by: BRII CACERES on 12/05/19 141 Hydrocodone/Acetaminophen ([place] 7.5-325 Tablet) 1 Each Tablet, 1-2 TAB PO Q4H Prescribed by: PAYTON BOYER on 12/12/19 0830 Insulin Aspart (Novolog Flexpen) 300 Units/3 Ml Solution, 0-10 UNITS SQ AC, (Reported) Entered as Reported by: BRII CACERES on 12/05/19 142 Insulin Aspart (Novolog Flexpen) 300 Units/3 Ml Solution, 0-10 UNITS SQ HS, (Reported) Entered as Reported by: BRII CACERES on 12/05/19 142 Lisinopril (Lisinopril) 20 Mg Tablet, 20 MG PO DAILY, (Reported) Entered as Reported by: BRII CACERES on 12/05/19 141 Review of Systems Review of Systems Constitutional: see HPI EENTM: no symptoms reported Respiratory: cough (occasional) Cardiovascular: no symptoms reported Gastrointestinal: no symptoms reported Genitourinary: no symptoms reported Musculoskeletal: no symptoms reported Skin: no symptoms reported Psychiatric/Neurological: Other (confused earlier per family) All Other Systems Reviewed Negative Unless Noted: Yes Past [place]v-Qoqlxf-Ccisuj Hx Seasonal Allergies Seasonal Allergies: Yes Past Medical History Surgery/Hospitalization HX: quad cabg 05/2021, several back surgeries, lt shoulder, bi lat knee Surgeries: Yes (KIDNEY STONEBILAT KNEE, BACK X3, SHOULDER YESSICA,CALF MUSCLE, SEVERAL FOR GB ) Abdominal, Cardiac, CABG, Gallbladder, Joint Replacement, Orthopedic Respiratory: No Currently Using CPAP: No Currently Using BIPAP: No Cardiac: Yes (4 VESSEL CABG 06/02/21 AT ) Atrial Fibrillation, Chronic Edema/Swelling, Coronary Artery Disease, Heart Attack, High Cholesterol, Hypertension Neurological: Yes (CHILDHOOD) Seizure Disorder Sexually Transmitted Disease: No HIV/AIDS: No Genitourinary: Yes (LOW KIDNEY FUNCTION) Kidney Stones, Renal Failure Gastrointestinal: Yes (GROWTH ON LIVER) Abdominal Hernia, Chronic Constipation, Chronic Diarrhea Musculoskeletal: Yes (BACK SX) Arthritis, Chronic Back Pain, Gout Endocrine: Yes Diabetes, Insulin dep HEENT: Yes (GLASSES) Loss of Vision: Denies Hearing Impairment: Denies Cancer: Yes Skin Did You Recieve Any Treatments: Yes Psychosocial: No Integumentary: No Blood Disorders: No Adverse Reaction/Blood Tranf: No (N/A) Family Medical History SOCIAL HISTORY: -SMOKED > 1 PPD, QUIT YEARS AGO, BUT STILL CHEWS TOBACCO -ETOH--HISTORY OF HEAVY USE, CLAIMS NO USE FOR YEARS -DENIES ANY HISTORY OF DRUG USE PAST SURGICAL HISTORY: -CARDIAC CATH'S -4 VESSEL CABG 06/02/21 AT [facility] -CHOLECYSTECTOMY -UMBILICAL HERNIA REPAIR 01/[address] PARKS -LEFT ROTATOR CUFF REPAIR -LITHOTRIPSY -BILATERAL KNEE SCOPES -BILATERAL KNEE REPLACEMENTS -BACK SURGERIES/LUMBAR LAMINECTOMY Physical Exam Vital Signs Vital Signs - First Documented 09/29/21 16:15 Temp 36.3 Pulse 68 Resp 18 B/P (MAP) 108/57 (74) Pulse Ox 99 O2 Delivery Room Air Capillary Refill : Height, Weight, BMI Height: '" Weight: 240lbs. oz. 108.931333fi; 28.00 BMI Method: General Appearance: No Apparent Distress, WD/WN Eyes: Bilateral Eye Normal Inspection, Bilateral Eye PERRL, Bilateral Eye EOMI HEENT: PERRL/EOMI, Pharynx Normal, Other (chewing tobacco in mouth) Neck: Normal Inspection Respiratory: Lungs Clear, Normal Breath Sounds, No Accessory Muscle Use, No Re spiratory Distress, Other (well healed midline sternotomy scare) Cardiovascular: Regular Rate, Rhythm, Normal Peripheral Pulses Gastrointestinal: Normal Bowel Sounds, Soft, Tenderness (mild tenderness right flank) Extremity: Normal Capillary Refill, Normal Inspection, Normal Range of Motion, Pedal Edema (2+ bilateral LE edema) Neurologic/Psychiatric: Alert, Oriented x3, No Motor/Sensory Deficits, Normal Mood/Affect, stock drier tender II-XII Norm as Tested Skin: Normal Color, Warm/Dry Progress/Results/Core Measures Suspected Sepsis SIRS Temperature: Pulse: Respiratory Rate: Blood Pressure / Mean: Results/Orders My Orders Orders - PACO MITCHELL MD Ekg Tracing (09/29/21 16:53) Vital Signs/I&O 09/29/21 16:15 Temp 36.3 Pulse 68 Resp 18 B/P (MAP) 108/57 (74) Pulse Ox 99 O2 Delivery Room Air Capillary Refill : Progress Note : Time: 17:35 Progress Note I reviewed the labs from outpatient surgery earlier. Everything looks pretty normal. He is again awake alert and normal. His daughter states that he is at his baseline. Vital signs are stable. He states that he is comfortable going home and his daughter states that she is comfortable taking him home, no concerns for safety. He will follow-up as stated earlier with his nurse practitioner in the clinic, Beba Flores tomorrow. Return precautions provided. Family verbalized understanding, all questions are sought and answered.\\ BP systolic 108 at discharge. ECG Initial ECG Impression Date: Sep 29, 2021 Initial ECG Impression Time: 17:02 Initial ECG Rate: 68 Initial ECG Intervals Interventricular conduction delay with prolonged AL interval at 250 ms QRS 178 QTC 518 Comment No ectopy is noted. Wide-complex rhythm. No significant ST's elevation or depression Departure Impression Primary Impression: Episode of confusion Additional Impression: Hypotension Qualified Codes: I95.2 - Hypotension due to drugs Disposition: 01 HOME, SELF-CARE Condition: Improved Departure-Patient Inst. Decision time for Depature: 17:36 Referrals: JONATHAN FLORES DO (PCP) Primary Care Physician DAMION FLORES DNP (Family) Primary Care Physician Patient Instructions: Low Blood Pressure Add. Discharge Instructions: Follow-up with Beba Flores tomorrow as instructed. Do not take the blood pressure medication AMLODIPINE as instructed by Beba. Continue all of your other medications as scheduled. Return to the emergency department for any new, concerning or emergent complaints. Copy Copies To 1: JONATHAN FLORES KATHRYN M MD Sep 29, 2021 16:52
[2021-09-29 17:55] VITALS: BP 108/57
== END 2021-09-29 17:58 | disposition home or self-care (01) ==
LOC: EDUNIT# 15:56 → ER 15:58
DX: R41.0 Disorientation, unspecified (principal); I95.9 Hypotension, unspecified; R60.0 Localized edema; E11.22 Type 2 diabetes mellitus with diabetic chronic kidney disease; I12.9 Hypertensive chronic kidney disease with stage 1 through stage 4 chronic kidney disease, or unspecified chronic kidney disease; N18.9 Chronic kidney disease, unspecified; Z79.4 Long term (current) use of insulin; Z95.1 Presence of aortocoronary bypass graft
CPT/HCPCS: 93005

== ENCOUNTER → 2021-09-29 | Outpatient (CLI) | payer MEDICARE ==
[~2021-09-29] MED LIST changes: +LACTATED RINGERS 2,000 ML IV ONE
[2021-09-29 15:42] LABS: HEMATOCRIT 39 % (40-54); HEMOGLOBIN 13.2 g/dL (13.3-17.7); MEAN CORPUSCULAR HEMOGLOBIN 28 pg (25-34); MEAN CORPUSCULAR HGB CONC 34 g/dL (32-36); MEAN CORPUSCULAR VOLUME 81 fL (80-99); MEAN PLATELET VOLUME 9.5 fL (9.0-12.2); PLATELET COUNT 193 10^3/uL (130-400); WHITE BLOOD COUNT 7.9 10^3/uL (4.3-11.0)
[2021-09-29 15:51] LABS: ALBUMIN 4.2 GM/DL (3.2-4.5); POTASSIUM 3.7 MMOL/L (3.6-5.0)
[2021-09-29 15:52] LABS: CALCIUM 9.6 MG/DL (8.5-10.1)
[2021-09-29 15:54] LABS: TOTAL PROTEIN 7.6 GM/DL (6.4-8.2)
[2021-09-29 15:55] LABS: BILIRUBIN,TOTAL 0.7 MG/DL (0.1-1.0)
[2021-09-29 15:57] LABS: CREATININE SERUM 3.23 MG/DL (0.60-1.30)
[2021-09-29 16:00] LABS: MAGNESIUM 2.4 MG/DL (1.6-2.4)
== END ==
LOC: SDC 15:11
PROVIDERS: ATTEND Nurse Practitioner Family
DX: I95.9 Hypotension, unspecified (principal); E78.00 Pure hypercholesterolemia, unspecified; E86.0 Dehydration
CPT/HCPCS: 36415; 80053; 83735; 85027